=== PATIENT | female | born 1995 | race Caucasian/White ===

== ENCOUNTER 2019-11-21 17:03 | Emergency (ER) | payer OTHER, SELFPAY ==
[2019-11-21 17:05] VITALS: BP 149/86; PULSE 95; RESP 17; TEMP 37.8; O2SAT 96; BMI 57.4
[2019-11-21 17:16] VITALS: RESP 18; O2SAT 97
--- NOTE | 2019-11-21 17:23 | ED.DCSUM_ITS ---
- ER Visit Summary Date of Service: 11/21/19 Chief Complaint: Upper respiratory infection History of Present Illness: The patient is a 24 F with cough, sore throat, shortness of breath, fever, weakness for 1-1/2 weeks. Patient tried an antibiotic, but it did not improve her symptoms. She is previously healthy. Denies heart or lung disease. Denies diabetes or immune compromise. Physical Examination: Afebrile and vital signs unremarkable except a low-grade temperature of 100.1. Patient is alert and oriented. No acute distress. Sitting, moving, speaking comfortably. Breathing quietly. Heart regular. Skin normal. HEENT exam unremarkable. Test Results: None indicated Emergency Department Course and Treatment: Coronavirus precautions were maintained. She is outside the treatment window for influenza. She has viral symptoms, possibly concerning for coronavirus. Testing is not indicated as she does not meet inpatient criteria. She is appropriate for outpatient care and follow-up. She was treated with Decadron and Tylenol for symptomatic relief. She was encouraged on symptomatic care and contact precautions at home until her symptoms have resolved. She was given information. Treatment Plan: As above Disposition: Discharge Impression: Upper respiratory infection, suspect coronavirus 19 This note was generated with [employer] dictation software. It may contain incorrect words, spelling, and punctuation that were not noted in review of the chart prior to signing ED Disposition - Plan for ED Patient: Referrals: Demetrio Powers MD [Primary Care Provider] -
[2019-11-21] MEDS: Acetaminophen 500 MG Tablet 1000 MG PO (17:25)
[2019-11-21] MEDS: dexAMETHasone 10 MG/ML Vial PO.IVFORM (17:25)
[2019-11-21 17:27] VITALS: RESP 18; O2SAT 100
--- NOTE | 2019-11-21 17:27 | ED.DEP ---
ED Disposition - Plan for ED Patient: Instructions: ED Upper Resp Infec No Abx Tx Referrals: Demetrio Powers MD [Primary Care Provider] -
== END 2019-11-21 17:46 | disposition home or self-care (01) ==
LOC: ED 17:41
PROVIDERS: Emergency Provider Emergency Medicine; PCP Family Medicine
DX: R06.9 Unspecified abnormalities of breathing (principal)
CPT/HCPCS: 99283